=== PATIENT | female | born 1990 | race African-American/Black ===

== ENCOUNTER 2016-08-13 02:44 | Emergency (ER) ==
[2016-08-13 02:55] VITALS: BP 125/69
[2016-08-13] MEDS ORDERED: MARCAINE 0.5% PF INJ ONE (03:02)
[2016-08-13] MEDS ORDERED: PEN VK PO ONE (03:02)
[2016-08-13] MEDS ORDERED: MARCAINE 0.5% PF ONE (03:03)
--- NOTE | 2016-08-13 03:09 | PROVIDER DOCUMENTATION ---
[facility]-EE General - General Source: patient - History of Present Illness-EENT General EE Location: reports: dental Quality of Pain: reports: aching Severity: reports: mild Onset/Duration: reports: unsure Timing: reports: still present Associated Symptoms: reports: tooth pain - Throat/Dental Throat/Dental Problem Symptoms: reports: toothache Throat/Dental Problem Context: reports: dental decay <Rich Gonzalez - Last Filed: 08/13/16 03:02> <Omid Phoenix - Last Filed: 08/13/16 03:12> - General Chief Complaint: Toothache Stated Complaint: TOOTH ACHE Time Seen by Provider: 08/13/16 02:56 Allergies/Adverse Reactions: Patient Allergies Allergy/AdvReac Type Severity Reaction Status Date / Time No Known Allergies Allergy Verified 06/28/16 05:13 - History of Present Illness-EE General Nature of Presenting Problem: 26 yo F presents to the ER with complaint of tooth pain. Pt states the pain is in her upper R molars. Pt states she does not have enough money yet to go see the dentist. (Rich Gonzalez) Review of Systems - Adult - REVIEW OF SYSTEMS - ADULT Constitutional: denies: chills, fever Eyes: reports: no symptoms reported Ears, Nose, Mouth & Throat: reports: mouth/dental pain. denies: throat swelling Cardiovascular: denies: chest pain, palpitations Respiratory: denies: cough, shortness of breath Gastrointestinal: denies: abdominal pain, nausea, vomiting Genitourinary: reports: no symptoms reported Musculoskeletal: reports: no symptoms reported Integumentary: reports: no symptoms reported Neurological: reports: no symptoms reported Psychiatric: reports: no symptoms reported Endocrine: reports: no symptoms reported Hematologic/Lymphatic: reports: no symptoms reported Allergic/Immunologic: reports: no symptoms reported All Other Systems: Reviewed and Negative <Rich Gonzalez - Last Filed: 08/13/16 03:02> Past History - Adult - PAST MEDICAL HISTORY-ADULT Review of Records: reports: Old Records Reviewed, Nursing Assessment Review, Medications Reviewed Major Childhood Illnesses: reports: denies history Cardiovascular: reports: denies history Respiratory: reports: denies history Gastrointestinal: reports: denies history Obstetrical/Gynecological: reports: denies history Genitourinary: reports: denies history Musculoskeletal: reports: denies history Neurological: reports: denies history Endocrine/Immune: reports: denies history Other Conditions: reports: denies history - PRIOR SURGERIES/PROCEDURES Surgical/Procedure History: reports: orthopedic (extremity) - IMMUNIZATION STATUS Childhood Immunizations: See Nurse Assessment Flu Vaccine: See Nurse Assessment - FAMILY HISTORY Family History: reviewed, not pertinent <Rich Gonzalez - Last Filed: 08/13/16 03:02> Physical Exam- EENT - Physical Exam EENT Initial Vital Signs Reviewed: Yes General Appearance: appears well, no apparent distress Throat Exam: dental tenderness Respiratory: chest non-tender, lungs clear Cardiovascular: normal peripheral pulses, regular rate, rhythm Extremity: normal range of motion, non-tender, normal gait <Rich Gonzalez - Last Filed: 08/13/16 03:02> Progress <Rich Gonzalez - Last Filed: 08/13/16 03:02> <Omid Phoenix - Last Filed: 08/13/16 03:12> - PLAN OF CARE/RESULTS Progress/Plan/Lab Results: Orders Category Date Time Status Bupivacaine Pf 0.5% [Marcaine 0.5% Pf] Med 08/13/16 03:02 Discontinued 10 ml INJ NOW ONE Bupivacaine Pf 0.5% [Marcaine 0.5% Pf] Med 08/13/16 03:03 Discontinued 30 ml .ROUTE .STK-MED ONE Penicillin V Potassium [Pen Vk] Med 08/13/16 03:02 Discontinued 500 mg PO NOW ONE Vital Signs Temp Pulse Resp BP Pulse Ox 08/13/16 02:50 98.3 F 61 20 125/69 100 No Known Allergies Allergy (Verified 06/28/16 05:13) No Home Medications 08/13/16 (Rich Gonzalez) Procedures - ENT PROCEDURES Nerve Block: Dental Anesthetic: 0.5%, Bupivicaine/Marcaine Volume of Anesthetic (ml's): 10 Procedure Comment: good anethesia/pain relief <Omid Phoenix - Last Filed: 08/13/16 03:12> Departure <Rich Gonzalez - Last Filed: 08/13/16 03:02> - Departure Time of Disposition Order: 03:12 Certified Medical Emergency: Emergent <Omid Phoenix - Last Filed: 08/13/16 03:12> - Departure DIAGNOSIS: Pain, dental Disposition: HOME 01 Condition: Good Prescriptions: Hydrocodone/Acetaminophen [[place] 5-325 Tablet] 1 each PO Q4-6H PRN PRN #12 tablet PRN Reason: Pain Penicillin V Potassium [Pen Vk] 500 mg PO Q6HR #80 tablet Attestation - Scribe Verification/Attestation Scribe:: Rich Gonzalez Acting as Scribe for:: Omid Phoenix Scribe documention review:: This chart was documented by a scribe and accurately reflects the service the provider performed and the decisions made by the provider. <Rich Gonzalez - Last Filed: 08/13/16 03:02> Physician Attestation
== END 2016-08-13 03:18 | disposition home or self-care (01) ==
LOC: P.ED 02:44
DX: K08.89 Other specified disorders of teeth and supporting structures (principal); K02.9 Dental caries, unspecified
CPT/HCPCS: S0020